=== PATIENT | male | born 1970 | race Caucasian/White ===

== ENCOUNTER 2020-05-19 16:59 | Emergency (ER) | payer OTHER ==
[~2020-05-19] VITALS: Ht 177.8 cm; Wt 113.6 kg
[2020-05-19 18:07] LABS: BASO % 1 % (0-3); EOS % 0 % (0-3); HEMATOCRIT 44.4 % (39.0-53.0); HEMOGLOBIN 15.5 g/dL (13.0-17.5); LYMPH # 0.5 x10^3/uL (1.0-4.8); LYMPH % 14 % (24-48); MEAN CORPUSCULAR HEMOGLOBIN 31 pg (25-35); MEAN CORPUSCULAR HGB CONC 35 g/dL (31-37); MEAN CORPUSCULAR VOLUME 88 fL (79-100); MONO # 0.6 x10^3/uL (0.0-1.1); MONO % 18 % (0-9); NEUT # 2.4 x10^3/uL (1.8-7.7); NEUT % 67 % (31-73); PLATELET COUNT 97 x10^3/uL (140-400); RED BLOOD COUNT 5.04 x10^6/uL (4.30-5.70); RED CELL DISTRIBUTION WIDTH 12.7 % (11.5-14.5); WHITE BLOOD COUNT 3.6 x10^3/uL (4.0-11.0)
[2020-05-19 18:22] LABS: CALCIUM 8.6 mg/dL (8.5-10.1); CREATININE 1.1 mg/dL (0.7-1.3); GFR 70.6
--- NOTE | 2020-05-19 18:24 | PHYS DOC ---
Past Medical History Past Medical History: Hypertension Past Surgical History: Other Additional Past Surgical Histo: BACK, RT SHOULDER, LT SHOULDER, HERNIA, ORCHIOPEXY Smoking Status: Current Every Day Smoker Alcohol Use: Occasionally General Adult EDM: Chief Complaint: MULTIPLE COMPLAINTS HPI: HPI: Patient is a 50 year old male who presents with multiple complaints. Patient relates a illness that started on Tuesday. It started out as a headache. He noted a left-sided, throbbing headache, with associated photophobia and nausea typical of what he is had in the past. This headache however has not resolved with his usual [id number] medication. Today his physician was contacted and because of the headache and the subjective fever he had they sent him in for a rule out of meningitis. In addition the patient reports that he has a rash on his body. This is new rash. He is also had another rash on his hands and feet which is seen the campaign developer for and is using medication. The rash on his foot and hand is different than the rash he has today on his chest wall and extremities. The rash is not painful or itchy. Patient also reports that today he began to cough a dry cough but denies any change in smell or taste, change in urination, chest pain, abdominal pain, vomiting or diarrhea. Patient does report some shortness of breath intermittently over the last week. Any neck stiffness but does complain of some low back pain secondary to being in bed for the last 4 days. He reports it is muscular and worse with movement. He describes it is achy. Review of Systems: Review of Systems: Constitutional: Subjective fevers and chills and sweats. [] Eyes: Denies change in visual acuity. [] HENT: Denies nasal congestion or sore throat. [] Respiratory: See HPI [] Cardiovascular: Denies chest pain or edema. [] GI: See HPI [] : Denies dysuria. [] Musculoskeletal: Denies back pain or joint pain. [] Integument: See HPI. [] Neurologic: Denies headache, focal weakness or sensory changes. [] Endocrine: Denies polyuria or polydipsia. [] Lymphatic: Denies swollen glands. [] Psychiatric: Denies depression or anxiety. [] Heart Score: Risk Factors: Risk Factors: DM, Current or recent (<one month) smoker, HTN, HLP, family history of CAD, obesity. Risk Scores: Score 0 - 3: 2.5% MACE over next 6 weeks - Discharge Home Score 4 - 6: 20.3% MACE over next 6 weeks - Admit for Clinical Observation Score 7 - 10: 72.7% MACE over next 6 weeks - Early Invasive Strategies Current Medications: Current Medications Medications (Trade) Dose Ordered Sig/Donald Start Time Stop Time Status Last Admin Dose Admin Acetaminophen (Tylenol) 1,000 mg 1X ONCE 05/19/20 18:00 05/19/20 18:01 UNV Dexamethasone Sodium Phosphate (Decadron) 10 mg 1X ONCE 05/19/20 18:30 05/19/20 18:31 UNV Diphenhydramine HCl (Benadryl) 25 mg 1X ONCE 05/19/20 18:30 05/19/20 18:31 UNV Ketorolac Tromethamine (Toradol 30mg Vial) 30 mg 1X ONCE 05/19/20 17:30 05/19/20 17:31 UNV Magnesium Sulfate/ Dextrose 100 ml @ 100 mls/hr 1X ONCE 05/19/20 18:30 05/19/20 19:29 UNV Sodium Chloride 1,000 ml @ 1,000 mls/hr 1X ONCE 05/19/20 18:30 05/19/20 19:29 UNV Physical Exam: PE: Constitutional: Well developed, well nourished, no acute distress, non-toxic appearance. [] HENT: Normocephalic, atraumatic, bilateral external ears normal, TMs bilaterally without erythema, exudates or air-fluid levels, posterior oropharynx with erythema slight exudate was noted, dry mucous membranes, nose normal. [] Eyes: PERRLA, EOMI, conjunctiva normal, no discharge. [] Neck: Normal range of motion, no tenderness, supple, no stridor. No bruit, no JVD, no nuchal rigidity [] Cardiovascular:Heart rate regular rhythm, no murmur [] Lungs & Thorax: Bilateral breath sounds clear to auscultation [] Abdomen: Bowel sounds normal, soft, no tenderness, no masses, no pulsatile masses. [] Skin: Warm, dry, no erythema, diffuse rash on the trunk and extremities, this is a erythematous macular base with a central blister with a central umbilicated area consistent with molluscum contagiosum. [] Back: No tenderness, no CVA tenderness. [] Extremities: No tenderness, no cyanosis, no clubbing, ROM intact, no edema. [] Neurologic: Alert and oriented X 3, normal motor function, normal sensory function, no focal deficits noted. NIHSS equals 0 [] Psychologic: Affect normal, judgement normal, mood normal. [] Current Patient Data: Labs: Laboratory Tests Test 05/19/20 17:29 White Blood Count 3.6 x10^3/uL (4.0-11.0) L Red Blood Count 5.04 x10^6/uL (4.30-5.70) Hemoglobin 15.5 g/dL (13.0-17.5) Hematocrit 44.4 % (39.0-53.0) Mean Corpuscular Volume 88 fL (79-100) Mean Corpuscular Hemoglobin 31 pg (25-35) Mean Corpuscular Hemoglobin Concent 35 g/dL (31-37) Red Cell Distribution Width 12.7 % (11.5-14.5) Platelet Count 97 x10^3/uL (140-400) L Neutrophils (%) (Auto) 67 % (31-73) Lymphocytes (%) (Auto) 14 % (24-48) L Monocytes (%) (Auto) 18 % (0-9) H Eosinophils (%) (Auto) 0 % (0-3) Basophils (%) (Auto) 1 % (0-3) Neutrophils # (Auto) 2.4 x10^3/uL (1.8-7.7) Lymphocytes # (Auto) 0.5 x10^3/uL (1.0-4.8) L Monocytes # (Auto) 0.6 x10^3/uL (0.0-1.1) Eosinophils # (Auto) 0.0 x10^3/uL (0.0-0.7) Basophils # (Auto) 0.0 x10^3/uL (0.0-0.2) Laboratory Tests 05/19/20 17:29 Vital Signs: Vital Signs Date Time Temp Pulse Resp B/P (MAP) Pulse Ox O2 Delivery O2 Flow Rate FiO2 05/19/20 17:28 100.8 124 17 129/81 (97) 98 Room Air 100.8 EKG: EKG: [] Radiology/Procedures: Radiology/Procedures: [] Course & Med Decision Making: Course & Med Decision Making Pertinent Labs and Imaging studies reviewed. (See chart for details) 2140-patient was seen and reevaluated on multiple occasions throughout his hospitalization. Over his hospitalization his headache has improved markedly. He is now able to take his glasses off and actually look at me with his eyes open. He says that his headache is so much better he is stable and ready to go home. Today I discussed with him the treatment that he may need to continue as an outpatient. I discussed the side effects of Aleve Benadryl and Reglan. I discussed with him reasons to return, treatment plan and need for follow-up. [] Dragon Disclaimer: Dragon Disclaimer: This electronic medical record was generated, in whole or in part, using a voice recognition dictation system. Departure Departure Impression: Primary Impression: Headache, common migraine, intractable, with status migrainosus Additional Impressions: Molluscum contagiosum Acute viral syndrome Person under investigation for COVID-19 Disposition: HOME, SELF-CARE Condition: IMPROVED Referrals: LENCHO TORRES MD (PCP) Patient Instructions: Molluscum Contagiosum, Recurrent Migraine Headache, Viral Syndrome Additional Instructions: Should the headache persist in the morning you may take 2 Aleve with 2 Benadryl and 1 Reglan every 8 hours. If this does not seem to relieve the headache then please return to ER. Your COVID testing should be returned in the next 24 hours. See attached information sheet. Scripts Metoclopramide Hcl (REGLAN) 10 Mg Tablet 1 TAB PO Q8HRS PRN for HEADACHE, #10 TAB 0 Refills before food and bedtime Prov: GIL CARO MD 05/19/20 Justicifation of Admission Dx: Justifications for Admission: Justification of Admission Dx: N/A GIL CARO MD May 19, 2020 18:24
[2020-05-19 18:28] LABS: ALBUMIN 3.3 g/dL (3.4-5.0); ALBUMIN/GLOBULIN RATIO 0.8 (1.0-1.7); TOTAL BILIRUBIN 0.4 mg/dL (0.2-1.0); TOTAL PROTEIN 7.2 g/dL (6.4-8.2)
[2020-05-19] MEDS ORDERED: DEXAMETHASONE SOD PHOS 4 MG/ML VIAL IVP ONE (18:30)
[2020-05-19] MEDS ORDERED: ACETAMINOPHEN 500 MG TABLET PO ONE (18:30)
[2020-05-19] MEDS ORDERED: MAGNESIUM SULFATE 1GM 100 ML IV ONE (18:30)
[2020-05-19] MEDS ORDERED: diphenhydrAMINE 50 MG/ML VIAL IVP ONE (18:30)
[2020-05-19] MEDS ORDERED: KETOROLAC 30 MG/ML VIAL. IV ONE (18:30)
[2020-05-19] MEDS ORDERED: IV NORMAL SALINE 1000ML BAG 1,000 ML IV ONE ×2 (18:30)
--- NOTE | 2020-05-19 19:08 | RAD ---
EXAM: CHEST AP ONLY INDICATION: Reason: fever / Spl. Instructions: / History: . TECHNIQUE: Single view COMPARISON: Chest x-ray 04/21/2013 FINDINGS: The heart size is normal. The great vessels appear unremarkable. There is no hilar or mediastinal mass. The lungs are hypoventilatory but otherwise clear. There is no pleural effusion or pneumothorax. There are no significant osseous abnormalities. IMPRESSION: Hypoventilatory chest showing no active cardiopulmonary disease. Electronically signed by: Anastasiya Valdovinos MD (05/19/2020 7:06 PM) [facility] [place]
[2020-05-19 21:37] LABS: BILIRUBIN,URINE NEGATIVE (NEG); CLARITY,URINE CLEAR; COLOR,URINE YELLOW; NITRITE,URINE NEGATIVE (NEG); PROTEIN,URINE NEGATIVE (NEG-TRACE); UROBILINOGEN,URINE 0.2 mg/dL (0.2 mg/dL)
[2020-05-19 21:43] LABS: BACTERIA,URINE 0 /HPF (0-FEW); WBC,URINE 0 /HPF (0-4)
[2020-05-19] MEDS ORDERED: METO10TA81 PO (21:49)
[2020-05-19 21:55] VITALS: BP 121/81
--- NOTE | 2020-05-20 07:54 | EKG ---
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
== END 2020-05-19 22:09 | disposition home or self-care (01) ==
LOC: ER 16:59
DX: G43.009 Migraine without aura, not intractable, without status migrainosus (principal); Z20.828 Contact with and (suspected) exposure to other viral communicable diseases; B08.1 Molluscum contagiosum; B34.9 Viral infection, unspecified; R50.9 Fever, unspecified; R11.0 Nausea; I10 Essential (primary) hypertension; F17.200 Nicotine dependence, unspecified, uncomplicated; Z98.890 Other specified postprocedural states
CPT/HCPCS: 36415; 71045; 80053; 81001; 82550; 83605; 85025; 87040; 87070; 87880; 93005; 96361; 96365; 96375; 99285; J1100; J1200; J1885; J3475; J7030; U0003